=== PATIENT | male | born 1970 | race Two or more races ===

== ENCOUNTER 2023-01-28 15:55 | Emergency (ER) | payer SELFPAY ==
[~2023-01-28] VITALS: Ht 165.1 cm; Wt 86.4 kg
[2023-01-28 16:00] VITALS: TEMP 99.1
[2023-01-28] MEDS ORDERED: CLINDAMYCIN HCL 150 MG CAPSULE PO ONE (17:30)
[2023-01-28] MEDS ORDERED: CLIN-142 PO (17:49)
[2023-01-28 18:17] VITALS: BP 155/88; PULSE 94; RESP 18
== END 2023-01-28 18:30 | disposition home or self-care (01) ==
LOC: EMS 15:57
DX: N49.2 Inflammatory disorders of scrotum (principal); F17.210 Nicotine dependence, cigarettes, uncomplicated
CPT/HCPCS: 99282; Z7502; Z7610

== ENCOUNTER 2024-02-13 23:45 | Emergency (ER) | payer SELFPAY ==
[~2024-02-13] VITALS: Ht 165.1 cm; Wt 86.4 kg
[~2024-02-13 23:45] MED LIST: CLIN-142 PO
[2024-02-14 00:16] VITALS: TEMP 98.1
[2024-02-14] MEDS ORDERED: CEPH-558 PO (00:29)
[2024-02-14] MEDS ORDERED: SULF-261 PO (00:29)
[2024-02-14] MEDS: CEPHALEXIN MONOHYDRATE 500 MG CAPSULE PO ONE (00:31)
[2024-02-14] MEDS: SULFAMETHOX/TRIMETH DS 800-160 MG/TABLET PO ONE (00:32)
[2024-02-14 00:34] VITALS: BP 154/87; PULSE 98; RESP 18; O2SAT 99
== END 2024-02-14 00:38 | disposition home or self-care (01) ==
LOC: EMS 23:47
DX: N49.2 Inflammatory disorders of scrotum (principal); F17.210 Nicotine dependence, cigarettes, uncomplicated; Z91.199 Patient's noncompliance with other medical treatment and regimen due to unspecified reason
CPT/HCPCS: 99283